=== PATIENT | male | born 1985 | race African-American/Black ===

== ENCOUNTER 2023-05-16 09:28 | Outpatient (CLI) | payer OTHER | END 2023-05-16 09:29 | disposition home or self-care (01) | LOC: MRI 09:28 | PROVIDERS: ATTEND Family Medicine | DX: M51.26 Other intervertebral disc displacement, lumbar region (principal); R26.9 Unspecified abnormalities of gait and mobility; M51.36 Other intervertebral disc degeneration, lumbar region; M47.816 Spondylosis without myelopathy or radiculopathy, lumbar region; M51.27 Other intervertebral disc displacement, lumbosacral region; M47.817 Spondylosis without myelopathy or radiculopathy, lumbosacral region; M48.061 Spinal stenosis, lumbar region without neurogenic claudication | CPT/HCPCS: 72148 ==